=== PATIENT | female | born 1965 | race Caucasian/White ===

== ENCOUNTER → 2017-05-21 08:55 | Outpatient (CLI) | payer OTHER, SELFPAY ==
[2017-05-21 10:12] LABS: AST(SGOT) 17 U/L (15-37); Alanine Aminotransfer ALT/SGPT 30 U/L (13-56); Albumin, Serum 3.5 g/dL (3.2-5.0); Alkaline Phosphatase 74 U/L (45-117); Bilirubin, Direct 0.11 mg/dL (0.00-0.30); Cholesterol 102 mg/dL (200); Globulin 3.7 g/dL (2.2-4.2); High Density Lipoprotein 56 mg/dL; Protein, Total 7.2 g/dL (6.4-8.2); Triglycerides 61 mg/dL; Very Low Density Lipoprotein 12 mg/dL (5-40)
== END ==
PROVIDERS: Family Provider Family Medicine; PCP Family Medicine; Visit Provider Physician Assistant Medical
DX: R94.39 Abnormal result of other cardiovascular function study (principal); Z79.899 Other long term (current) drug therapy
CPT/HCPCS: 36415; 80061; 80076

== ENCOUNTER → 2018-05-22 10:48 | Outpatient (CLI) | payer OTHER, SELFPAY ==
[2018-04-10 14:28] VITALS: BMI 28.3
[2018-05-22 13:34] LABS: AST(SGOT) 20 U/L (15-37); Alanine Aminotransfer ALT/SGPT 30 U/L (13-56); Albumin, Serum 3.9 g/dL (3.2-5.0); Alkaline Phosphatase 65 U/L (45-117); Bilirubin, Direct 0.17 mg/dL (0.00-0.30); Cholesterol 125 mg/dL (200); Globulin 3.8 g/dL (2.2-4.2); High Density Lipoprotein 69 mg/dL; Protein, Total 7.7 g/dL (6.4-8.2); Triglycerides 118 mg/dL; Very Low Density Lipoprotein 24 mg/dL (5-40)
== END ==
PROVIDERS: Family Provider Family Medicine; PCP Family Medicine; Referring Provider Physician Assistant Medical; Visit Provider Physician Assistant Medical
DX: R94.39 Abnormal result of other cardiovascular function study (principal)
CPT/HCPCS: 36415; 80061; 80076

== ENCOUNTER → 2018-06-04 13:07 | Outpatient (CLI) | payer OTHER, SELFPAY ==
[2018-04-10 14:28] VITALS: BMI 28.3
--- NOTE | 2018-06-04 13:12 | STE_ITS ---
Reason For Study: CHEST PAIN Stress Results Protocol: Stress Echocardiogram Maximum Predicted HR: 168 bpm Target HR: 143 bpm % Maximum Predicted HR: 113 % DurationHeart Rate Stage (mm:ss) (bpm) BP Comment BASELINE 73 126/78 GROVER PROTOCOL- STAGE 1 3:00 122 160/80 GROVER PROTOCOL- STAGE 2 3:00 142 154/76 GROVER PROTOCOL- STAGE 3 3:00 169 162/74 GROVER PROTOCOL- STAGE 4 2:00 190 / DYSPNEA Stress Duration: 11:00 mm:ss Maximum Stress HR: 190 bpm METS: 13 Baseline Echocardiogram Findings Stress Echo Wall motion Data Resting WM Intermediate WM Stress WM Resting Wall Motion Wall Motion Stress All segments Normal. All segments Hyperkinetic. Ejection Fraction 60 %. Ejection Fraction 75 %. Stress Results Heart rate response: appropriate Blood pressure response: normal resting BP - appropriate response Arrhythmias: rare PVC during exercise / recovery Functional capacity: good Stopped secondary to : dyspnea. EKG Data Baseline ECG: NSR. Exercise ECG: approximately 1-[address] segment depression in leads II, III, aVF, and V3-V6 with resolution towards baseline beginning < 1 minute in recovery with subsequent nonspecific T wave abnormality. Symptoms with Stress No c/o chest discomfort during exercise / recovery. Interpretation Summary NEGATIVE (ADEQUATE) STRESS ECHOCARDIOGRAM ABNORMAL (ADEQUATE) ECG ETT Ordering Physician: Jasmyn Alvarado Referring Physician: Jasmyn Alvarado Performed By: Maribel Wang, ANGELA, RVT
== END ==
PROVIDERS: Family Provider Family Medicine; PCP Family Medicine; Referring Provider Physician Assistant Medical; Visit Provider Physician Assistant Medical
DX: R07.9 Chest pain, unspecified (principal); R94.39 Abnormal result of other cardiovascular function study
CPT/HCPCS: 93017; 93350

== ENCOUNTER → 2018-06-20 15:30 | Outpatient (CLI) | payer OTHER, SELFPAY ==
[2018-04-10 14:28] VITALS: BMI 28.3
--- NOTE | 2018-06-20 15:31 | BI_ITS ---
MAMMOGRAPHY - BILATERAL SCREENING 3-D TOMOSYNTHESIS REASON FOR EXAM: Female, 53 years old. Bilateral Screening 3-D tomosynthesis PERTINENT HISTORY: No significant family history. TECHNIQUE: 2-D mammograms and 3-D Tomosynthesis of the breast (s) were performed. CAD was performed. COMPARISON: 02/02/2017 FINDINGS: The breast composition is composed of scattered fibroglandular density. Scattered benign calcifications are seen. No dense spiculated masses or suspicious microcalcifications are identified. No architectural distortion is identified. There is no skin thickening or retraction. Stable lymph node in the upper outer quadrant of the right breast. There has been no significant change since the prior study. BI/SCREENING MAMM (CAD), BILAT IMPRESSION: No mammographic signs of malignancy. Routine yearly mammograms recommended. ASSESSMENT CATEGORY: BIRADS Category 2: Benign. A letter regarding these results will be sent to the patient by the facility within 30 days. FOLLOW UP RECOMMENDATION: Yearly follow up mammogram recommended. (A) Approximately 10% of breast cancers are not detected by mammography. A normal mammogram should not delay biopsy of a clinically suspicious abnormality. Electronically Signed: Pollo Gore MD at 7:54 EDT , Service support ,
== END ==
PROVIDERS: Family Provider Family Medicine; PCP Family Medicine; Referring Provider Obstetrics & Gynecology; Visit Provider Obstetrics & Gynecology
DX: Z12.31 Encounter for screening mammogram for malignant neoplasm of breast (principal)
CPT/HCPCS: 77063; 77067

== ENCOUNTER 2018-07-23 09:07 | Day surgery (SDC) | payer OTHER, SELFPAY ==
[2018-04-10 14:28] VITALS: BMI 28.3
[2018-07-17 11:04] VITALS: BMI 28.3
--- NOTE | 2018-07-17 12:15 | RAD_ITS ---
STUDY: X-RAY CHEST REASON FOR EXAM: Female, 53 years old. Preop heart catheter. TECHNIQUE: PA and lateral views of the chest. COMPARISON: None. FINDINGS: The lungs are clear and expanded. There is no demonstrated pleural abnormality. Normal size heart. Normal mediastinum and jomar. Normal visualized pulmonary arteries. Normal visualized aortic arch and descending thoracic aorta. Normal visualized thoracic spine. Normal visualized ribs, clavicles, and shoulders. There is no demonstrated abnormality of the visualized soft tissue structures of the upper abdomen. RAD/Chest PA and Lateral IMPRESSION: No acute cardiopulmonary disease. Electronically Signed: Ariel Hobson DO at 23:35 EDT Tel [phone], Service support ,
[2018-07-17 13:04] LABS: Mean Corp Hgb Conc 34.1 g/gl (32-36); Mean Corpuscular Hgb 29.9 pg (27.0-32.0); Mean Corpuscular Volume 87.8 fL (81-99); Mean Platelet Vol. 9.2 fl (6.2-12.0); Platelet Count 402 K/mm3 (150-450); RBC Distribution Width CV 12.2 % (11.6-14.6); RBC Distribution Width SD 38.9 fl (35.1-43.9); Red Blood Count 5.01 M/mm3 (4.2-5.4); White Blood Count 7.5 K/mm3 (4.4-11.0)
[2018-07-17 13:08] LABS: Scan Indicated on CBC? Y/N NO
[2018-07-17 13:15] LABS: Prothrombin Time (Protime)PT. 12.9 SECONDS (11.7-14.9)
[2018-07-17 13:16] LABS: Partial Thromboplast Time 31.5 Seconds (24.1-36.2)
[2018-07-17 13:26] LABS: Anion Gap 3 (5-15); BUN 11 mg/dL (7-18); BUN/Creat Ratio 15.4 RATIO (10-20); Calcium,Total 8.7 mg/dL (8.5-10.1); Chloride 105 mmol/L (98-107); Creatinine, Serum 0.72 mg/dL (0.55-1.02); EST Glomerular Filtration Rate 91 mL/min (>60); Est Glom Filt Rate - Afr Amer 110 mL/min (>60); Glucose 86 mg/dL (74-106); Potassium 3.6 mmol/L (3.5-5.1); Sodium Level 139 mmol/L (136-145)
[2018-07-19 10:12] VITALS: BMI 28.3
[2018-07-23 09:47] LABS: Internal QC Validated? YES +Cl - CLEAR BKGD; Pregnancy, Serum, hCG Quali. NEGATIVE Negative
--- NOTE | 2018-07-23 11:40 | CL.D_ITS ---
Patient Name: JIN SMITH Study Date: 07/23/2018 Performing: Julius Engel MD Ht: 66.92 inches 170 cm : 1965 Wt: 180.78 lbs 82 kg Age: 53 Gender: female BSA: 1.94 PROCEDURE(S) PERFORMED [id number] CLINICAL PROFILE AND INDICATIONS Indications: Suspected CAD Heart Failure: None Stress/Imaging Date: 05/30/2018 Angina Classification Anginal Classification w/in 2 Weeks: CCS II CAD Presentations: Other: Chest pain CONCLUSIONS Elevated Left Ventricular End Diastolic Pressure Normal LV size, wall motion,and systolic function LVEF: by LV gram 65 % Normal coronary arteries RECOMMENDATIONS Medical therapy DESCRIPTION OF PROCEDURE The patient arrived to the procedure lab. The risks and benefits of the procedure as well as a full d escription of our services here and current unavailability of surgical backup were fully explained to the patient and/or their significant other prior to the catheterization. The Timeout was completed, verifying the correct patient and procedure. The patient's procedural site was prepped and draped in the usual fashion. Local anesthetic was given subcutaneously to right radial region with Lidocaine 2% . Using a modified Seldinger technique, arterial access was obtained via the right radial artery, a 6 Fr sheath was inserted. Right Coronary Artery selective angiography was then performed in multiple v iews using a 5 Fr. 4.0 [place] catheter. Left Coronary Artery selective angiography was performed in mu ltiple views using a 5 Fr. 4.0 [place] catheter. Left Ventriculography was performed in RADFORD projection using a 5 Fr. Pig[place] catheter. LV to AO pullback pressures were then recorded.The arterial sheath was pulled and a TR Band was applied for hemostasis 12cc air inserted CORONARY ANGIOGRAPHY DOMINANCE: Right Dominant LEFT HEART ASSESSMENT Left Ventricular Ejection Fraction: by LV Gram 65 % Normal LV wall motion Elevated Left Ventricular End Diastolic Pressure LVEDP: 18 mmHg LEFT MAIN: Angiographically normal LEFT ANTERIOR DESCENDING ARTERY: Angiographically normal CIRCUMFLEX ARTERY: Angiographically normal RIGHT CORONARY ARTERY: Angiographically normal VALVE FINDINGS: Normal Aortic Valve function Normal Mitral Valve function AORTIC ROOT: Angiographically normal COMPLICATIONS No Complications PROCEDURE MEDICATIONS Versed 1 mg IV Fentanyl 50 mcg IV Versed 1 mg IV Fentanyl 50 mcg IV Oxygen: 2 L/min via nasal cannula Heparin diluted in 23cc Heparinized saline. Patient given 10cc IA of this solution. 07/23/2018 10:59: 34 Verapamil 2.5mg, Ntg 100mcgs, 2000 units of Heparin diluted in 23cc Heparinized saline. Patient give n 10cc IA of this solution. 07/23/2018 10:59:34 SUMMARY OF HEMODYNAMIC DATA Time AIR REST ECG 09:27:37 AO 126/72 (96) SA 11:01:33 LV 141/3, 22 11:12:10 LV 136/0, 18 11:12:16 LV 132/3, 20 11:13:37 LV 135/3, 21 11:13:44 LVp 136/0, 21 11:13:48 AOp 136/69 (99) 11:13:53 Signed By Julius Engel MD On 07/23/2018 11:39:10 Julius Engel MD
== END 2018-07-23 14:48 | disposition home or self-care (01) ==
LOC: CLSP 09:08
PROVIDERS: Family Provider Family Medicine; PCP Family Medicine; Referring Provider Internal Medicine Cardiovascular Disease; Visit Provider Internal Medicine Cardiovascular Disease
DX: R07.9 Chest pain, unspecified (principal); R94.39 Abnormal result of other cardiovascular function study; Z79.82 Long term (current) use of aspirin
CPT/HCPCS: 36415; 71046; 80048; 84703; 85027; 85610; 85730; 93458; 99152; 99153; J7040; Q9967; C1769; C1894

== ENCOUNTER → 2019-10-17 13:18 | Outpatient (CLI) | payer OTHER, SELFPAY ==
[2019-09-11 15:29] VITALS: BMI 29.2
--- NOTE | 2019-10-17 13:23 | BI_ITS ---
MAMMOGRAPHY - BILATERAL SCREENING 3-D TOMOSYNTHESIS REASON FOR EXAM: Female, 54 years old. Annual screening mammogram. PERTINENT HISTORY: No significant family history. TECHNIQUE: 2-D mammograms and 3-D Tomosynthesis of the breast (s) were performed. CAD was performed. COMPARISON: 06/20/2018, 02/02/2017 FINDINGS: The breast composition is Scattered benign calcifications are seen. No dense spiculated masses or suspicious microcalcifications are identified. No architectural distortion is identified. There is no skin thickening or retraction. Stable lymph nodes. There has been no significant change since the prior study. BI/SCREEN MAMM (CAD) W/IRLANDA BILAT IMPRESSION: No mammographic signs of malignancy. Routine yearly mammograms recommended. ASSESSMENT CATEGORY: BIRADS Category 2: Benign. A letter regarding these results will be sent to the patient by the facility within 30 days. FOLLOW UP RECOMMENDATION: Yearly follow up mammogram recommended. (A) Approximately 10% of breast cancers are not detected by mammography. A normal mammogram should not delay biopsy of a clinically suspicious abnormality. Electronically Signed: Dane Abreu MD at 15:53 EDT , Service support ,
--- NOTE | 2019-10-17 14:17 | US_ITS ---
STUDY: SUPERFICIAL ULTRASOUND - BACK REASON FOR EXAM: Female, 54 years old. palpable mass - left back TECHNIQUE: A superficial ultrasound was performed with real-time and static hernandez-scale imaging. COMPARISON: None. FINDINGS: Multiple ultrasound images of the left lateral back were obtained in the region of clinical interest. An ovoid structure is identified measuring 26 x 17 x 10 mm. This has an overall similar appearance to adjacent skeletal muscle, although the finding in question is slightly more hyperechoic. A region of partially fatty muscular fascicles could have this appearance. True underlying mass lesion is not entirely excluded. Consider MRI correlation. US/Ext Non Vasc Limited/Soft Tiss IMPRESSION: In the region of clinical interest, a slightly hyperechoic structure is identified that has an otherwise similar appearance to adjacent skeletal muscle. A region of partially fatty muscular fascicles could have this appearance. True underlying mass lesion is not entirely excluded. Consider MRI correlation. Electronically Signed: Rodney Whittaker MD at 19:44 EDT Tel , Service support ,
== END ==
PROVIDERS: PCP Family Medicine; Referring Provider Student in an Organized Health Care Education/Training Program; Visit Provider Student in an Organized Health Care Education/Training Program
DX: Z12.31 Encounter for screening mammogram for malignant neoplasm of breast (principal); R22.2 Localized swelling, mass and lump, trunk
CPT/HCPCS: 76882; 77063; 77067

== ENCOUNTER → 2019-10-31 13:13 | Outpatient (CLI) | payer OTHER, SELFPAY ==
[2019-09-11 15:29] VITALS: BMI 29.2
--- NOTE | 2019-10-31 13:19 | MRI_ITS ---
STUDY: MR CHEST WITH T WITHOUT CONTRAST REASON FOR EXAM: Mass at the lateral aspect of the left back between the skin markers, no specific injury. TECHNIQUE: Standardized fat and water weighted pulse sequences were obtained in all 3 orthogonal planes, pre-and post contrast administration. Dotarem 17ml iv was administered for the contrast portion of the examination. COMPARISON: Ultrasound 10/17/2019. FINDINGS: There is a superficial nonencapsulated lipoma at the left lateral chest wall between the skin markers (T2 sagittal images 5-8; T1 axial images 12-23). There is no contrast enhancing lesion in the subcutis adipose space. Normal visualized musculature of the left chest wall. MRI/Chest W/WO Contrast IMPRESSION: Superficial nonencapsulated lipoma corresponding to the skin markers. Electronically Signed: Branden Khan MD at 15:30 EDT Tel , Service support ,
== END ==
PROVIDERS: PCP Family Medicine; Referring Provider Family Medicine; Visit Provider Family Medicine
DX: R22.2 Localized swelling, mass and lump, trunk (principal)
CPT/HCPCS: 71552; A9575

== ENCOUNTER → 2019-12-30 09:44 | Outpatient (CLI) | payer OTHER, SELFPAY ==
[2019-09-11 15:29] VITALS: BMI 29.2
[2019-12-30 10:35] LABS: AST(SGOT) 19 U/L (15-37); Alanine Aminotransfer ALT/SGPT 30 U/L (13-56); Albumin, Serum 3.8 g/dL (3.2-5.0); Alkaline Phosphatase 87 U/L (45-117); Bilirubin, Direct 0.11 mg/dL (0.00-0.30); Cholesterol 194 mg/dL (200); Globulin 4.1 g/dL (2.2-4.2); High Density Lipoprotein 65 mg/dL; Protein, Total 7.9 g/dL (6.4-8.2); Triglycerides 132 mg/dL; Very Low Density Lipoprotein 26 mg/dL (5-40)
== END ==
PROVIDERS: PCP Family Medicine; Referring Provider Nurse Practitioner Family; Visit Provider Nurse Practitioner Family
DX: R07.9 Chest pain, unspecified (principal)
CPT/HCPCS: 36415; 80061; 80076

== ENCOUNTER 2020-01-15 16:32 | Observation (INO) | payer OTHER, SELFPAY ==
[2019-09-11 15:29] VITALS: BMI 29.2
--- NOTE | 2020-01-08 08:43 | EKG12_ITS ---
Test Reason : PRE OP Blood Pressure : / mmHG Vent. Rate : 075 BPM Atrial Rate : 075 BPM P-R Int : 162 ms QRS Dur : 072 ms QT Int : 362 ms P-R-T Axes : 039 -05 032 degrees QTc Int : 404 ms Normal sinus rhythm Normal ECG Confirmed by YARIEL RIVERA, RUBIN ([id number]), mapping editor JOVANI SMITH ([id number]) on 01/13/2020 9:56:14 AM Referred By: SARAH Confirmed By:SHIN SALDIVAR MD
--- NOTE | 2020-01-14 18:05 | HP.PCM_ITS ---
History and Physical Date of Admission: 01/15/20 Date: 01/14/2020 Name: VANNESA SMITH Age: 54 Date of : 1965 Surgical History and Physical Date: 01/14/2020 Name: VANNESA SMITH Age: 54 Date of : 1965 Vannesa Smith, a 54 year old female 2 0 1 0 2, presents for planned Robotic Assisted Total Laparoscopic Hysterectomy, Bilateral Salpingectomy, Possible A+P Repair uterosacral ligament suspension for abnormal uterine bleeding and pelvic organ prolapse. She has a large fibroid uterus. Endometrial biopsy was benign. MEDICATIONS HISTORY: History of chest pain of unknown origin. She had cardiac catheterization with Dr. Engel which was negative for blockage. Chest pain occurs about every 6 months. Medications: 1. multivitamin capsule, 1 tab po daily 2. Hylatopic topical foam, Apply to face daily ALLERGIES: Polymyxin eye gtts, Redness, irritation, Etodolac, Stomach ache, Polymyxin B, Eye and redness Infections - Chicken pox, HPV and mono Illnesses - lower back pain from fall age 20 (fell off bunkbed and hit a dresser), Rosacea and Heart blockage Accidents - fall, injured back and broken L radius Hospitalizations - Childbirthnbirth by [facility]; Review of Systems: GENERAL - Denies fever, or chills SKIN - Denies skin changes EYES - wears eye glasses EARS - Denies difficulty hearing NOSE - Denies nasal congestion or bleeding MOUTH - Denies sore throat or difficulty swallowing NECK - Denies pain or swelling RESPIRATORY - Denies shortness of breath or wheezing CARDIOVASCULAR - Denies palpitations or chest pain GASTROINTESTINAL - Denies nausea, vomiting, diarrhea, constipation GENITOURINARY - Denies dysuria, frequency of urination, incontinence of urine MUSCULOSKELETAL - Denies joint or muscle pain NEUROLOGICAL - Denies localized numbness or weakness PSYCHIATRIC - Denies depression or anxiety ENDOCRINE - Denies heat or cold intolerance, weight loss or gain HEMATO-IMMUNOLOGIC - Denies excesive bleeding with cuts SOCIAL HISTORY: Alcohol Use - drinks occasionally Smoking - denies smoking Illicit Drug Use - None FAMILY HISTORY: Maternal history of DM I. Mother: osteoporosis and Hypertension. Father: Prostate Cancer. Maternal Grandmother: low bp, DM II and Heart Disease. Paternal Grandmother: Heart Disease. Paternal Grandfather: Heart Disease. MENSTRUAL HISTORY: LMP Known?- DefiniteAmount/Duration - 4-5 days, Regularity - Regular, Frequency - monthly days, Prior Menses - 11/16/2011, LMP - 12/26/19 PAST PREGNANCIES: Total Pregnancies - 3; Full Term Pregnancies - 2; Premature - 0; Abortions, Induced - 0; Abortions, Spontaneous - 1; Ectopics - 0; Multiple Births - 0; Living Children - 2 SURGICAL HISTORY: 1. CRYOSURGERY 1988 ; - 2. WISDOM TEETH EXTRACTED ; - 3. Heart Cath 06/2018 ; Dr. Engel - Chest pain. Negative heart cath. No etiology found for pain. PHYSICAL EXAM BP- 132/72 Sitting, Right arm, regular cuff Temp- 97.9 Taken Orally Weight- 185.38729 lbs Height- 66.25 inch BMI:29.70 CONSTITUTIONAL - NAD, well nourished, and well developed SKIN - No rash, lesions, or ulcers HEENT - Normocephalic, PERRLA, EOMI NECK - No nodes, no nuchal rigidity and thyroid normal size and texture LYMPH NODES - Palpation of lymph nodes in neck and groins within normal limits LUNGS - CTA x2 without wheezes, crackles or rales CARDIAC - Regular rate and rhythm without rubs, murmurs, or gallops BREAST - No dominant masses, no tenderness, no axillary adenopathy, no nipple discharge, no skin changes ABDOMEN - Without hepatosplenomegaly, distention, masses, rebound, or guarding; normal bowel sounds; no hernias EXTREMITIES - No edema or calf tenderness NEUROLOGICAL - Cranial nerves II-XII grossly intact PSYCHIATRIC - A and O to time, place, person, mood and affect External Genitial Vagina - non-tender without lesions Urethra/Urethral Meatus - non-tender Bladder - non-tender Vagina - vaginal castro are pink and moist without loss of rugae and no evidence of atropy Cervix - without cervical motion tenderness and has normal size and features without evident lesions Uterus - enlarged uterus Adnexa - clear without massess or tenderness ASSESSMENT/PLAN: 1. Leiomyoma Of Uterus, Unspecified Enlarged fibroid uterus causing heavy menstrual bleeding and pelvic pressure, bloating, urinary symptoms. Discussed management options including: surgical, medical, or IUD. Patient opts for surgical management Planned for RA-TLH bilateral salpingectom with cystoscopy, counseled on potential need for open hysterectomy or mini-laparotomy due to size of uterus. Discussed preservation of ovaries. Discussed risk of reoperation in future with leaving ovaries at this time. Patient would like to conserve ovaries, but is amenable to removal if abnormal in appearance at time of surgery. Cardiac clearance received. R/B/A discussed. Risks inculde, but are not limited to: risk of bleeding to the point of transfusion, infection, injury to surrounding tissue including bowel/bladder requiring prolonged mesa use, VTE, ICU admission. Patient agreed and understands. Consents signed 2. Irregular Menstruation, Unspecified Heavy menses lasting 10-14 days per month, pt also having post coital bleeding Enlarged 13 cm uterus with 8 cm fibroid EMB negative for hyperplasia or malignancy 3. Uterovaginal Prolapse, Unspecified Possible anterior and posterior repair, uterosacral ligament suspensio n based on exam in OR. Reports some pelvic pressure symptoms and bulging that is bothersome. R/B/A as above.
[2020-01-15] VITALS (10 sets, daily range): BP systolic 108–133; BP diastolic 52–75; PULSE 68–87; RESP 14–16; TEMP 36.3–37.1; O2SAT 94–100; BMI 29.0
[2020-01-15 11:24] LABS: Internal QC Validated? YES +Cl - CLEAR BKGD; Pregnancy, Urine Negative Negative
[2020-01-15 11:26] LABS: Hematocrit 43.4 % (37-47); Hemoglobin 14.7 g/dL (12.0-15.0); Mean Corp Hgb Conc 33.9 g/dL (32-36); Mean Corpuscular Hgb 30.6 pg (27.0-32.0); Mean Corpuscular Volume 90.4 fL (81-99); Mean Platelet Vol. 8.7 fl (6.2-12.0); Platelet Count 379 K/mm3 (150-450); RBC Distribution Width SD 39.4 fl (35.1-43.9)
[2020-01-15] MEDS: Lactated Ringers 1,000 ML 100 ML IV ×3 (11:31→17:48)
--- NOTE | 2020-01-15 12:15 | HYST_PTH ---
PATIENT: JIN SMITH LOC: [facility] U#:[id number] AGE/SX: 54/F ROOM: [facility]320 RE01/15/[address]: Dr. Magda Frost DO : 1965 BED: 1 DIS: 01/16/2020 SPEC #: [id number] RECD: 01/16/20 07:05 STATUS: NICOLE REDawn #: [id number] MARVA: 01/15/20 12:[address]: Magda Frost DEPT: SURGICAL PATHOLOGY RECD BY: Krystian Hancock ENTERED: 01/16/20 08:38 SP TYPE: HYSTERECT OTHR DR: Dr. Michelle Franklin MD Tissues: Uterus, NOS Procedures: Surgery Specimen Level V HEADER OPERATION: Lap robotic hysterectomy, cystoscopy, bilateral salpingectomy PRE-OP DIAGNOSIS: Leiomyoma uterus, irregular menstruation, uterovaginal prolapse TISSUE SUBMITTED: Uterus, cervix, bilateral fallopian tubes MICROSCOPIC DIAGNOSIS Uterus, hysterectomy: Cervix - squamous metaplasia, moderate chronic inflammation and nabothian cysts. Endometrium - transitional endometrium. Myometrium - leiomyoma. Right and left fallopian tubes - benign paratubal cysts. AM:cleve 01/19/20 MICROSCOPIC DESCRIPTION Slides are reviewed. GROSS DESCRIPTION Received in fixative is one container labeled with the patient's name and designated uterus. The specimen consists of a morcelated uterus received in greater than 25 fragments ranging in size from <0.1 to 14 cm and in aggregate weighing 457 gm. Among the fragments are two fallopian tubes with average lengths of 4 cm and average diameters of 1 cm. Normal fimbriated ends are identified. The fallopian tubes are not marked as to left or right. A distinct endocervical cavity is not identified. A distinct endometrial cavity is also not identified. The largest portion of the specimen consists of a rubbery, sanchez-white mass measuring 8 cm in diameter. Sections of this nodular mass reveal whorled appearances without areas of cyst formation or necrosis. Exercise Rider sections are submitted in six cassettes as follows: 1 - cervix, 2 - one fallopian tube, 3 - the other fallopian tubes, posterior cervix, 4 & 5 - presumed endometrium/myometrial, 6 - nodular mass. / AM:cleve 01/16/20 TC:1 CPT: 99515
[2020-01-15] MEDS: Cefazolin 2 GM in 0.9% Normal Saline 100 ML IV (12:51)
[2020-01-15] MEDS: Lidocaine 1% /Epi 1:100 (20ml) 20 ML Vial (13:17)
--- NOTE | 2020-01-15 16:37 | OP.PCM_ITS ---
Report of Operation Date of Procedure: 01/15/20 Pre-Operative Diagnosis: Abnormal uterine bleeding, fibroid uterus. Anterior vaginal prolapse. Post-Operative Diagnosis: Abnormal uterine bleeding, fibroid uterus. Anterior vaginal prolapse. Surgery/Procedure Performed:: Robotic assisted total laparoscopic hysterectomy, anterior repair, cystoscopy. Description of Surgical Findings:: Normal-appearing external genitalia. Grade 3 cystocele. No rectocele. No apical prolapse. Normal-appearing bilateral ovaries, tubes. Enlarged fibroid uterus. Specimen's removed: Uterus, cervix, fallopian tubes Estimated Blood Loss (mL): 250cc Fluids Replaced: 1700cc Description of Procedure: Patient taken to the operating room and placed under general anesthesia. Patient placed in dorsal lithotomy position and prepped and draped in the usual sterile fashion. Linda catheter placed. Grade 3 anterior prolapse was noted. Weighted speculum placed in the posterior vagina and anterior portion of the cervix grasped with a single-tooth tenaculum. Cervix sequentially dilated and sounded to 11 cm. Uterine manipulator placed after 2 [id number] sutures placed at 3 and 9:00 positions. Gloves were changed and attention was then turned to the anterior abdominal wall. Varies needle was utilized to insufflate the abdomen through the umbilicus. Supraumbilical incision made and trocar placed. Laparoscopic camera was utilized to visualize the entire abdominal wall. Right and left trocar's were placed under direct visualization. Robot was docked. Uterus noted to be enlarged and boggy, difficult to manipulate. Attention to the left side of the uterus was made. left round ligament was identified coagulated and cut anterior leaf of the broad ligament dissected down towards the vesicouterine peritoneum and bladder flap was created. Because the uterus was large and difficult to meet manipulator was decided to leave tubes initially and come back. Ureters identified. Left tube was coagulated and cut along the side of the uterus, left utero-ovarian ligament was coagulated and cut several locations. Dissection was carried down the left side of the uterus towards the left uterine arteries. Enlarged left uterine arteries were noted. Uterus was tilted in the opposite direction and right round ligament was identified coagulated and cut. Vesicouterine peritoneum identified and bladder flap was created on the right side carrying towards the midline. Right tube was coagulated and cut along the side of the right uterus. Right utero-ovarian ligament was coagulated and cut in a similar fashion. Dissection was carried down the right side of the uterus towards the uterine arteries. Further dissection of the bladder away from the anterior cervix was completed using blunt dissection as well as sharp. An area at the middle of the cervix was noted to be adhesed this was dissected off carefully away from the uterus and cervix, allowing the bladder flap to fall away from the anterior cervix. Right uterine artery was identified coagulated in several locations and incised. Left uterine artery was coagulated in several locations and incised in a similar fashion. Uterus was anteverted and colpotomy was started posteriorly this was then carried towards the left in a clockwise fashion as lithotomy incision reached the region of the uterine arteries there were noted to be more arteries which were coagulated with bipolar cautery and then incised. Colpotomy was then extended around the right side of the uterus using bipolar cautery to coagulate the remaining uterine arteries on the right side. Colpotomy was extended anteriorly and completed. Uterus was attempted to be removed however the manipulator came out with traction. At that time I scrubbed and the uterus was incised through the vagina, attempting to bivalve. Portions of the uterus were removed slowly coring the center. This took extensive dissection of the uterus due to the fibroid the fundus. Uterus was then removed through the vagina with traction. Fallopian tubes were then removed laparoscopically. Right fallopian tube was grasped coagulated cut and removed followed by the left in a similar fashion. Vaginal cuff was then closed robotically with a V-Loc suture starting on the right extending towards the left and following 2 stitches towards midline. Pelvis with suction irrigated. Vaginal cuff was hemostatic along with the right and left ovarian regions. Robot was undocked. At this time attention was turned below and anterior repair was completed, for grade 3 anterior prolapse. Anterior vaginal wall was grasped with 2 Allis clamps injection was completed for hydrodissection Vertical incision in the vagina was made with sc alpel Allises were used to grasp bilateral sides of the vaginal incision. Metzenbaum scissors were utilized for dissection of the defect away from the vaginal epithelium on both sides. Ray-Doris was also used for blunt dissection. Stitches were placed to repair the defect. Vaginal epithelium was trimmed and closed with a running locking stitch. Hemostatic. Abdominal incisions were then closed with stitches and glue after gloves were changed. Cystoscopy was completed with no noted bladder defects and bilateral ureteral jets. At the end of the procedure all needle, lap, sponge counts were correct x3. 150cc urine output.
--- NOTE | 2020-01-15 16:50 | DCINST_ITS ---
Discharge Activity: Return to Normal Activity, May not drive while taking narcotic pain medications., May Shower May resume sexual activity in: 6 weeks, 8 weeks Weight Bearing Status: Weight bearing as tolerated Call your doctor if your incision/area has: Continuous Slow Oozing, Sudden Increased Bleeding, Increased Pain/ Swelling, Increased Redness Call your doctor if you observe: Fever of 101 or Higher, Inability to urinate, Inability to have a bowel movement, Using more than one pad per hour, Uncontrolled pain Cleanse incision/area with: Soap & Water Allergies/Adverse Reactions: Allergies etodolac Adverse Reaction (Verified 01/15/20 10:57) stomach pain polymyxin B [From Polytrim] Adverse Reaction (Verified 01/15/20 10:57) red, itchy,tearing trimethoprim [From Polytrim] Adverse Reaction (Verified 01/15/20 10:57) red, itchy,tearing Medications to take at Discharge metronidazole 0.75 % topical gel 1 applic TOPICAL ONCE PRN 03/02/17 multivitamin 1 tab PO DAILY 04/10/18 ascorbate calcium (vitamin C) 500 mg tablet 500 mg PO DAILY 07/17/18 cetirizine 10 mg capsule 10 mg PO DAILY PRN 07/17/18 emollient combination no.53 1 ea TOPICAL BID ml 07/17/18 Primary Care Physician: Michelle Franklin MD [Primary Care Provider] - Test Results: Test results from this visit will be discussed in further detail at your follow- up appointment, if applicable. Please Follow Up With: Magda Frost DO - 2 weeks Proposed Discharge Date: 01/16/20
[2020-01-15] MEDS: Ibuprofen 600 MG Tablet PO (21:18)
[2020-01-16 02:18] VITALS: BP 126/61; PULSE 85; RESP 16; TEMP 36.7; O2SAT 96
[2020-01-16] MEDS: HYDROcodone Bitartrate/Apap 5/325 Tablet PO (03:32)
[2020-01-16 05:23] VITALS: BP 110/61; PULSE 68; RESP 16; TEMP 36.8; O2SAT 98
[2020-01-16] MEDS: Ibuprofen 600 MG Tablet PO (06:13)
[2020-01-16 07:50] LABS: Hematocrit 35.1 % (37-47); Hemoglobin 11.5 g/dL (12.0-15.0); Mean Corp Hgb Conc 32.8 g/dL (32-36); Mean Corpuscular Hgb 30.1 pg (27.0-32.0); Mean Corpuscular Volume 91.9 fL (81-99); Mean Platelet Vol. 8.7 fl (6.2-12.0); Platelet Count 325 K/mm3 (150-450); RBC Distribution Width CV 12.1 % (11.6-14.6); RBC Distribution Width SD 40.7 fl (35.1-43.9); Red Blood Count 3.82 M/mm3 (4.2-5.4); White Blood Count 21.5 K/mm3 (4.4-11.0)
--- NOTE | 2020-01-16 08:18 | PCM.PN.OB ---
Subjective: POD#1 Feeling well. Ambulating. Tolerating fluids. Ordered breakfast. Abdominal pain controlled, having some referred shoulder pain. Voiding. - Physical Exam Vitals/I&O's: Vital Signs Temp Pulse Resp BP Pulse Ox 98.2 F 68 16 110/61 98 01/16/20 05:23 01/16/20 05:23 01/16/20 05:23 01/16/20 05:23 01/16/20 05:23 Oxygen Delivery Method Room Air Weight: 83.9 kg Body Mass Index (BMI) 29.0 Intake and Output for Last 24 Hours 01/14/20 01/15/20 01/16/20 23:59 23:59 23:59 Intake Total 2110 / 2660 2450 / 2450 Output Total 150 / 375 1225 / 1225 Balance 1960 / 2285 1225 / 1225 General: Alert, Oriented x3, No apparent distress HEENT: Atraumatic, Normocephalic Neck: Supple Lungs: Clear to auscultation Cardiovascular: Regular rate, Regular Rhythm Abdomen: Bowel Sounds Present - hypoactive. Mildly tender. incisions c/d/i Extremities: No clubbing, No edema Psych/Mental Status: Normal Affect Microbiology Past 72 Hours 01/14/20 16:20 Interface Orders SARS-CoV-2 Antigen (Rapid) - Final Laboratory Results 01/15/20 11:05: Urine Test Negative 01/15/20 11:20: WBC 10.0, RBC 4.80, Hgb 14.7, Hct 43.4, MCV 90.4, MCH 30.6, MCHC 33.9, RDW Std Deviation 39.4, RDW Coeff of Lala 12.0, Plt Count 379, MPV 8.7 01/16/20 07:35: WBC 21.5 H, RBC 3.82 L, Hgb 11.5 L, Hct 35.1 L, MCV 91.9, MCH 30.1, MCHC 32.8, RDW Std Deviation 40.7, RDW Coeff of Lala 12.1, Plt Count 325, MPV 8.7 Current Medications Hydrocodone Bitart/Acetaminophen (Hydrocodone Bitartrate/Apap 5/325 Tablet) 2 tablet PO Q4H PRN PRN PRN Reason: Pain Score 6-10 Last Admin: 01/16/20 03:32 Dose: 2 tablet Documented by: Enoxaparin Sodium (Enoxaparin 40 Mg/0.4 Ml Syringe) 40 mg SC DAILY@0800 [facility] Lactated Ringer's () 1,000 mls @ 100 mls/hr IV .Q10H [facility] Last Infusion: 01/16/20 04:06 Dose: Infused Documented by: Ibuprofen (Ibuprofen 600 Mg Tablet) 600 mg PO Q6 [facility] Last Admin: 01/16/20 06:13 Dose: 600 mg Documented by: Influenza Virus Vaccine Quadrival (Influenza Vaccine (6mos+)/Pf 0.5 Ml Syringe) 0.5 ml IM .ONCE ONE Stop: 01/16/20 10:01 Ondansetron HCl (Ondansetron 4 Mg/2 Ml Vial) 4 mg IV Q4H PRN PRN PRN Reason: NAUSEA Simethicone (Simethicone 80 Mg Tablet) 80 mg PO PCHS PRN PRN Reason: Gas Last Admin: 01/16/20 02:37 Dose: 80 mg Documented by: Sodium Chloride (0.9% Saline Lock 10 Ml Syringe) 10 - 40 ml IV UD PRN PRN Reason: SALINE FLUSH Medical Necessity - Tobacco Use Smoking Status: Never smoker Assessment/Plan 54 yo POD#1 s/p robotic assisted total laparoscopic hysterectomy, bilateral salpingectomy, anterior repair, and cystoscopy for abnormal uterine bleeding, anterior vaginal prolapse. Complicated by acute blood loss anemia secondary to surgery. Stable. 1. Post operative -Acute blood loss anemia secondary to surgery. No need for iron at this time. -Tolerating fluids, breakfast pending. No nausea. -Pain controlled, referred shoulder pain improving -Voiding spontaneously -Ambulating 2. History of cardiac catheterization for atypical chest pain. Negative. -Patient not on medications, no issues currently Diet: Regular IVFs: HLIV DVT PPx: SCD, ambulate, lovenox qd Dispo: home today
[2020-01-16] MEDS: Enoxaparin 40 MG/0.4 ML Syringe SC (08:28)
[2020-01-16 10:04] VITALS: BP 105/61; PULSE 70; RESP 18; TEMP 36.9; O2SAT 98
== END 2020-01-16 11:00 | disposition home or self-care (01) ==
LOC: SDC 16:39 → MS3 16:39
PROVIDERS: Anesthesiology; Admitting Provider Student in an Organized Health Care Education/Training Program; PCP Family Medicine; Referring Provider Student in an Organized Health Care Education/Training Program; Visit Provider Student in an Organized Health Care Education/Training Program
PROC: 0UT94ZZ Resection of Uterus, Percutaneous Endoscopic Approach (ICD-10-PCS; CPT 57240; principal; 2020-01-15 11:55)
PROC: (CPT 57260; 2020-01-15 11:55)
DX: N81.4 Uterovaginal prolapse, unspecified (principal); D25.1 Intramural leiomyoma of uterus; Z20.828 Contact with and (suspected) exposure to other viral communicable diseases; N92.1 Excessive and frequent menstruation with irregular cycle; N88.8 Other specified noninflammatory disorders of cervix uteri; N83.8 Other noninflammatory disorders of ovary, fallopian tube and broad ligament; Z79.899 Other long term (current) drug therapy; Z23 Encounter for immunization; I49.9 Cardiac arrhythmia, unspecified
CPT/HCPCS: 00940; 57240; 58554; S2900; 36415; 81025; 85027; 87426; 88307; 93005; 96360; 96361; 96372; 99218; 99251; C9803; J7120; 90686; G0378; G0379; G0463; J2405

== ENCOUNTER → 2021-01-13 09:04 | Outpatient (CLI) | payer OTHER, SELFPAY ==
--- NOTE | 2021-01-13 09:13 | BI_ITS ---
MAMMOGRAPHY - BILATERAL SCREENING REASON FOR EXAM: Female, 55 years old. Routine annual screening examination. PERTINENT HISTORY: Non-contributory. TECHNIQUE: Digital bilateral breast [place] (3D mammographic acquisition) in the CC and MLO projections. 2-D mediolateral oblique (MLO) and craniocaudad (CC) views of both breasts were obtained. CAD: Full Field Digital Mammography with Computer Added Detection was performed. COMPARISON: Comparison is made with prior study dated 10/17/2019 and 06/20/2018. FINDINGS: Breast Composition: There are scattered areas of fibroglandular density. There is a 4 mm x 5.4 mm well-defined nodule in the anterior upper medial aspect of the right breast. Correlation with ultrasound is recommended. Stable small benign-appearing bilateral axillary lymph nodes. No other significant abnormalities are identified. BI/SCRN MAMM (CAD)W/IRLANDA BILAT IMPRESSION: 4 mm x 5.4 mm well-defined nodule in the anterior upper medial aspect of the right breast. Correlation with ultrasound is recommended. ASSESSMENT CATEGORY: BIRADS Category 0: Incomplete. Need additional imaging evaluation. A letter regarding these results will be sent to the patient by the facility within 30 days. Approximately 10% of breast cancers are not detected by mammography. A normal mammogram should not delay biopsy of a clinically suspicious abnormality. [id number] Electronically Signed: Alec Milton MD at 9:57 EST , Service support ,
== END ==
PROVIDERS: PCP Family Medicine; Referring Provider Student in an Organized Health Care Education/Training Program; Visit Provider Student in an Organized Health Care Education/Training Program
DX: Z12.31 Encounter for screening mammogram for malignant neoplasm of breast (principal)
CPT/HCPCS: 77063; 77067

== ENCOUNTER → 2021-01-14 08:21 | Outpatient (CLI) | payer OTHER, SELFPAY ==
--- NOTE | 2021-01-14 08:40 | US_ITS ---
STUDY: ULTRASOUND BREAST - RIGHT REASON FOR EXAM: Female, 55 years old. Abnormal screening mammogram. TECHNIQUE: Axial and longitudinal images of the RIGHT breast were performed with a high resolution ultrasound transducer. # OF IMAGES: 18 COMPARISON: Comparison is made with prior mammogram dated 01/13/2021. FINDINGS: RIGHT Breast: There is a 4 mm x 4 mm x 1 mm cyst at the 1 o''clock position of the breast at 4 cm from nipple. This also evidence of a 6 mm x 7 mm x 3 mm cyst at the 4 o''clock position of the breast at 3 cm from the nipple. US/Breast Limited Unilateral IMPRESSION: 2 subcentimeter cysts are seen at the 1 o''clock and 4 o''clock position of the breast ASSESSMENT CATEGORY: BIRADS Category 2: Benign. A letter regarding these results will be sent to the patient by the facility within 30 days. Electronically Signed: Alec Milton MD at 11:12 EST , Service support ,
== END ==
PROVIDERS: PCP Family Medicine; Referring Provider Student in an Organized Health Care Education/Training Program; Visit Provider Student in an Organized Health Care Education/Training Program
DX: N60.01 Solitary cyst of right breast (principal)
CPT/HCPCS: 76642

== ENCOUNTER → 2022-04-27 | Outpatient (CLI) | payer OTHER, SELFPAY | END | disposition home or self-care (01) | LOC: LABSPEC 15:07 | PROVIDERS: PCP Family Medicine; Referring Provider Nurse Practitioner Family; Visit Provider Nurse Practitioner Family | DX: J02.9 Acute pharyngitis, unspecified (principal) | CPT/HCPCS: 87070; 87077 ==

== ENCOUNTER → 2022-08-09 | Outpatient (CLI) | payer OTHER, SELFPAY ==
--- NOTE | 2022-08-09 08:52 | BI_ITS ---
MAMMOGRAPHY - BILATERAL SCREENING REASON FOR EXAM: Female, 57 years old. Routine annual screening examination. PERTINENT HISTORY: Non-contributory. TECHNIQUE: Digital bilateral breast [place] (3D mammographic acquisition) in the CC and MLO projections. 2-D mediolateral oblique (MLO) and craniocaudad (CC) views of both breasts were obtained. CAD: Full Field Digital Mammography with Computer Added Detection was performed. COMPARISON: Comparison is made with prior study dated January 13, 2021 and October 17, 2019. FINDINGS: Breast Composition: There are scattered areas of fibroglandular density. There are no dominant masses or suspicious calcifications. Stable 4 mm x 5 mm well-defined nodule in the anterior upper medial aspect of the right breast. Stable benign-appearing bilateral axillary lymph nodes. No other significant abnormalities are identified. There has been no significant change since the prior study. BI/SCRN MAMM (CAD)W/IRLANDA BILAT IMPRESSION: Stable bilateral screening mammogram. Yearly follow-up mammogram recommended. (A) ASSESSMENT CATEGORY: BIRADS Category 2: Benign. A letter regarding these results will be sent to the patient by the facility within 30 days. Approximately 10% of breast cancers are not detected by mammography. A normal mammogram should not delay biopsy of a clinically suspicious abnormality. [id number] Electronically Signed: Alec Milton MD at 11:10 EDT ,
== END | disposition home or self-care (01) ==
LOC: OPBI 08:49
PROVIDERS: PCP Family Medicine; Referring Provider Nurse Practitioner Women's Health; Visit Provider Nurse Practitioner Women's Health
DX: Z12.31 Encounter for screening mammogram for malignant neoplasm of breast (principal)
CPT/HCPCS: 77063; 77067

== ENCOUNTER → 2024-10-10 | Outpatient (CLI) | payer OTHER, SELFPAY ==
--- OUTSIDE RECORDS SUMMARY | 2024-10-10 09:18 | XMS RPT_ITS | CCD ---
Author Organization [facility] Care Team Providers Care Media Account Executive Name Role Phone Michelle Bustillo Unavailable Michelle Bustillo Unavailable Michelle Franklin Primary Care Unavailable Misa Osborn Referring Unavailable Misa Osborn Attending Unavailable Brynn LOW ALTITUDE AIR DEFENSE GUNNER, Barbara Attending Unavailable Michelle Franklin Primary Care Unavailable Brynn LOW ALTITUDE AIR DEFENSE GUNNER, Barbara Referring Unavailable Allergies Allergy Classification Reported Allergen(s) Allergy Type Date of Onset Reaction(s) Facility (5 sources) etodolac; Translations: [etodolac] drug allergy 6 stomach pain [facility] Work Phone: (2 sources) POLYTRIM; OPHTHALMIC AGENT drug allergy 6 red, itchy, tearing [facility] Work Phone: (2 sources) Polymyxin B Drug Allergy 1 red, itchy,tearing [facility] (2 sources) Trimethoprim Drug Allergy 1 red, itchy,tearing [facility] (1 source) Trimethoprim Drug Allergy 1 [facility] (1 source) polymyxin B Drug allergy (disorder) 1 [facility] Medications Current Medications Medication Drug Class(es) Dates Sig (Normalized) Sig (Original) cetirizine hydrochloride 10 mg oral capsule (2 sources) Histamine-1 Receptor Antagonist Start: 07-17-2018 take 1 capsule by mouth once daily Cetirizine (Zyrtec) 10 mg capsule Active 10 MG PO DAILY July 17, 2018 12:00am Emollient Combination No.53 (Hylatopicplus) lotion (4 sources) Start: 09-13-2020 Emollient Combination No.53 (Hylatopicplus) lotion Active 1 EACH TOPICAL TWICE A DAY September 13, 2020 2:08pm Start: 09-13-2020 Emollient Comb ination No.53 (Hylatopicplus) lotion Active 1 EACH TOPICAL TWICE A DAY September 13, 2020 1:08pm Start: 07-17-2018 End: 09-13-2020 Emollient Combination No.53 (Hylatopicplus) lotion Discontinued 1 EACH TOPICAL TWICE A DAY July 17, 2018 12:00am September 13, 2020 2:08pm Start: 07-17-2018 End: 09-13-2020 Emollient Combination No.53 (Hylatopicplus) lotion Discontinued 1 EACH TOPICAL TWICE A DAY July 16, 2018 11:00pm September 13, 2020 1:08pm metroNIDAZOLE 0.0075 mg/mg topical gel (4 sources) Nitroimidazole Antimicrobial Start: 03-02-2017 Metronidazole Active 1 APPLIC TOPICAL ONCE March 02, 2017 1:00am Start: 12-29-2015 METROGEL GEL 0 .75% - Apply to face as directed for Rosacea METRONIDAZOLE GEL [id number] Jasmyn Chand RN Multivitamin (Daily Multi-Vitamin) tablet (2 sources) Start: 04-10-2018 take 1 tablet by mouth once daily Multivitamin (Daily Multi-Vitamin) tablet Active 1 TABLET PO DAILY April 10, 2018 1:00am Start: 04-10-2018 take 1 tablet by [facility] once daily Multivitamin (Daily Multi-Vitamin) tablet Active 1 TABLET PO DAILY April 10, 2018 12:00am Completed/Discontinued Medications Medication Drug Class(es) Dates Sig (Normalized) Sig (Original) acetaminophen 325 mg / HYDROcodone bitartrate 5 mg oral tablet (2 sources) Opioid Agonist Start: 01-16-2020 End: 01-21-2020 Hydrocodone-Acetam inophen Discontinued 1 EACH PO EVERY 6 HOURS NEEDED 15 07January 16, 2020 January 21, 2020 1:03am aspirin 81 mg delayed release oral tablet (2 sources) Platelet Aggregation Inhibitor, Nonsteroidal Anti-inflammatory Drug Start: 02-14-2016 take 1 tablet by mouth once daily ASPIRIN 81 MG TBEC One tablet by mouth daily ASPIRIN [id number] Julius Engel MD atorvastatin 20 mg oral tablet (8 sources) HMG-CoA Reductase Inhibitor Start: 04-11-2017 End: 04-10-2018 take 20 mg by mouth every other day Atorvastatin Discontinued 20 MG PO .COMPLEX 45 April 10, 2018 3:53pm April 10, 2018 3:55pm 20 mg PO every other day Start: 03-02-2017 End: 04-11-2017 take 20 mg by mouth once daily Atorvastatin Discontinu ed 20 MG PO daily March 02, 2017 1:00am April 11, 2017 4:43pm Start: 02-14-2016 take 1 tablet by andrew th once daily ATORVASTATIN CALCIUM 20 MG TABS One tablet by mouth daily ATORVASTATIN CALCIUM [id number] Julius Engel MD calcium ascorbate 500 mg oral tablet (2 sources) Start: 07-17-2018 End: 09-13-2020 take 500 mg by mouth once daily Ascorbate Calcium (Vitamin C) Discontinued 500 MG PO DAILY July 17, 2018 12:00am September 13, 2020 2:08pm clopidogrel 75 mg oral tablet (4 sources) P2Y12 Platelet Inhibitor Start: 07-03-2018 End: 09-11-2019 take 75 mg by mouth once daily Clopidogrel Discontinued 75 MG PO DAILY July 17, 2018 11:06am September 11, 2019 3:31pm DERMATOLOGICAL PRODUCTS, MISC. (1 source) Start: 12-30-2015 HYLATOPIC PLUS CREA as directed DERMATOLOGICAL PRODUCTS, MISC. [id number] Julius Engel MD DERMATOLOGICAL PRODUCTS, MISC. (1 source) Start: 12-30-2015 HYLATOPIC PLUS CREA as directed DERMATOLOGICAL PRODUCTS, MISC. [id number] Julius Engel MD Echinacea (2 sources) Start: 04-10-2018 End: 07-17-2018 take 380 mg by mouth once daily Echinacea Discontinued 380 MG PO DAILY April 10, 2018 1:00am July 17, 2018 11:06am Start: 04-10-2018 End: 07-17-2018 take 380 mg by mouth once daily Echinacea Discontinued 380 MG PO DAILY April 10, 2018 12:00am July 17, 2018 10:06am loratadine 10 mg oral capsule (4 sources) Start: 03-02-2017 End: 04-10-2018 take 10 mg by mouth once daily Loratadine Discontinued 10 MG PO daily March 02, 2017 1:00am April 10, 2018 3:30pm Start: 08-11-2016 take 1 tablet by andrew th once daily CLARITIN 10 MG CAPS One tablet by mouth daily LORATADINE [id number] Julius Engel MD Start: 08-11-2016 take 1 tablet by andrew th once daily CLARITIN 10 MG CAPS One tablet by mouth daily LORATADINE [id number] Julius Engel MD metoprolol tartrate 25 mg oral tablet (4 sources) beta-Adrenergic Annika Start: 01-12-2016 End: 02-14-2016 METOPROLOL TARTRATE 25 MG TABS One tablet by mouth the night before procedure and One tablet by mouth prior to procedure METOPROLOL TARTRATE [id number] Julius Engel MD MULTIPLE VITAMIN (2 sources) Start: 12-30-2015 take 1 tablet by mouth once daily MULTIVITAMINS TABS One tablet by mouth daily MULTIPLE VITAMIN Julius Engel MD rosuvastatin calcium 5 mg oral tablet (4 sources) HMG-CoA Reductase Inhibitor Start: 04-10-2018 End: 09-08-2019 take 1 tablet by mouth once daily Rosuvastatin (Crestor) 5 mg tablet Discontinued 5 MG PO DAILY 90 September 24, 2018 9:18am September 08, 2019 1:05pm Problems Active Problems Problem Classification Problem Date Documented Date Episodic/Chronic Nonspecific chest pain (4 sources) Chest pain; Translations: [Chest pain, unspecified] Onset: 12-29-2015 12-29-2015 Episodic Other screening for suspected conditions (not mental disorders or infectious disease) (6 sources) Electrocardiogram abnormal; Translations: [Echocardiogram abnormal] Onset: 12-30-2015 12-30-2015 Episodic Past or Other Problems Problem Classification Problem Date Documented Date Episodic/Chronic Other nutritional; endocrine; and metabolic disorders (2 sources) Body mass index (BMI) 27.0-27.9, adult; Translations: [Body mass index (BMI) 27.0-27.9, adult] Onset: 08-11-2016 08-11-2016 Episodic Other screening for suspected conditions (not mental disorders or infectious disease) (3 sources) Abnormal result of other cardiovascular function study; Translations: [Electrocardiogram abnormal] Onset: 12-30-2015 02-09-2016 Episodic Other upper respiratory infections (1 source) Acute pharyngitis, unspecified; Translations: [Acute pharyngitis, unspecified] Onset: 05-03-2022 Episodic Results Test Name Value Interpretation Reference Range Facility SCRN MAMM (CAD)W/IRLANDA BILATo n 08-09-2022 SCRN MAMM (CAD)W/IRLANDA BILAT [facility] Imaging Services [address] [place] [address] SCRN MAMM (CAD)W/IRLANDA BILAT MR#: [id number] Acct: [id number] Name: JIN SMITH Rep #: [id number] : 1965 F 57 From: Alec coates MD PCP: Dr. Michelle Franklin MD Status: [facility] CLI Study: SCRN MAMM (CAD)W/IRLANDA BILAT Date of Exam: 07/27 06/18 Exam# [id number] Ordering Dr: Misa Osborn L[employer]ITUDE [employer] DEF[employer] GUNNER-C MAMMOGRAPHY - BILATERAL SCREENING REASON FOR EXAM: Female, 57 years old. Routine annual screening examination. PERTINENT HISTORY: Non-contributory. TECHNIQUE: Digital bilateral breast irlanda (3D mammographic acquisition) in the CC and MLO projections. 2-D mediolateral oblique (MLO) and craniocaudad (CC) views of both breasts were obtained. CAD: Full Field Digital Mammography with Computer Added Detection was performed. COMPARISON: Comparison is made with prior study dated January 13, 2021 and October 17, 2019. FINDINGS: Breast Composition: There are scattered areas of fibroglandular density. There are no dominant masses or suspicious calcifications. Stable 4 mm x 5 mm well-defined nodule in the anterior upper medial aspect of the right breast. Stable benign-appearing bilateral axillary lymph nodes. No other significant abnormalities are identified. There has been no significant change since the prior study. BI/SCRN MAMM (CAD)W/IRLANDA BILAT IMPRESSION: Stable bilateral screening mammogram. Yearly follow-up mammogram recommended. (A) ASSESSMENT CATEGORY: BIRADS Category 2: Benign. A letter regarding these results will be sent to the patient by the facility within 30 days. Approximately 10% of breast cancers are not detected by mammography. A normal mammogram should not delay biopsy of a clinically suspicious abnormality. [id number] Electronically Signed: Alec Miltno MD at 11:10 EDT Reading Location ID and State: [address] [place] [address] , Service support , CC: VICKI Osborn; Dr. Michelle Franklin MD Rocket Engine Tester: Signed Normal [facility] Culture, Throaton 04-29-2022 CUT Order Date: 04/27/22 Order Info: 626-2 - CUT 04/27/22 626-2 - CUT Ampicillin can be used for Beta-Lactamase negative isolates. Bacteria Throat Cult Trimeth/Sulfa, Chloramphenicol, Cefotaxime, Ciprofloxacin, Amoxicillin/Clavula natalie Acid,and Oral 2nd/3rd Generation Cephlosporins are effective against both Beta-Lactamase positive and Beta-Lactamase negative isolates. Haemophilus influenzae Amount Growth 2+ Beta Lactamase-Reportabl e Positive Normal [facility] Comment on above: Performed By: #### M 100.1000 #### [facility] [address] [place], [address] Office Visiton 08-11-2016 Dietary management education, guidance, and counseling (procedure) yes Invalid Interpretation Code [facility] Work Phone: Documentation of current medications (procedure) Done Invalid Interpretation Code [facility] Work Phone: Fall risk assessment No Invalid Interpretation Code [facility] Work Phone: Protein mass conc Done [facility] Work Phone: [phone] Lab Report: Basic Metabolic Profile (BMP)on 04-11-2016 Anion gap 7 mmol/L Invalid Interpretation Code 5-15 [facility] Work Phone: [phone] Anion gap molar conc 7 mmol/L 5-[address] [facility] Work Phone: [phone] Calcium mass conc 8.8 mg/dL Invalid Interpretation Code 8.5-10.1 [facility] Work Phone: [phone] Chloride molar conc 103 mmol/L Invalid Interpretation Code 98-107 [facility] Work Phone: [phone] CO2 29.0 mmol/L Invalid Interpretation Code 21.0-32.0 [facility] Work Phone: [phone] CO2 ppres (BldV) 29.0 mmol/L 21.0-32.0 [facility] Work Phone: [phone] Creatinine mass conc 0.81 mg/dL Invalid Interpretation Code 0.55-1.02 [facility] Work Phone: [phone] eGFR (non-black) 96 mL/min/{1.73_m2} Invalid Interpretation Code >60 [facility] Work Phone: [phone] EST GFR - AA 96 mL/min >60 [facility] Work Phone: [phone] GFR/1.73 sq M predicted among non-blacks MDRD vol rate/area (S/P/Bld) 79 mL/min/{1.73_m2} Invalid Interpretation Code >60 [facility] Work Phone: [phone] Glucose 85 mg/dL Invalid Interpretation Code 70-110 [facility] Work Phone: [phone] Glucose mass conc 85 mg/dL 70-110 [facility] Work Phone: [phone] Potassium molar conc 3.8 mmol/L Invalid Interpretation Code 3.5-5.1 [facility] Work Phone: [phone] Sodium molar conc 139 mmol/L Invalid Interpretation Code 136-145 [facility] Work Phone: [phone] Urea nitrogen mass conc 11 mg/dL Invalid Interpretation Code 7-18 [facility] Work Phone: [phone] Urea nitrogen/Creatinine mass ratio 13.5 RATIO Invalid Interpretation Code 10-20 [facility] Work Phone: [phone] Lab Report: CBC-Complete Blo od Cnt No Diffon 04-11-2016 Erythrocyte distribution width Ratio (RBC) 40.5 fL 35.1-43.9 [facility] Work Phone: [phone] Erythrocyte distribution width Ratio (RBC) 12.3 % 11.6-14.6 [facility] Work Phone: [phone] Erythrocytes (RBC) 4.72 10*6/uL Invalid Interpretation Code 4.2-5.4 [facility] Work Phone: [phone] Hematocrit (HCT) 42.5 % Invalid Interpretation Code 37-47 [facility] Work Phone: [phone] Hematocrit Volume Fraction (Bld) 42.5 % 37-47 [facility] Work Phone: [phone] Hemoglobin mass conc (Bld) 14.3 g/dL Invalid Interpretation Code 12.0-15.0 [facility] Work Phone: [phone] MCH 30.3 pg Invalid Interpretation Code 27.0-32.0 [facility] Work Phone: [phone] MCH Entitic mass (RBC) 30.3 pg 27.0-32.0 [facility] Work Phone: [phone] MCHC 33.6 G/GL Invalid Interpretation Code 32-36 [facility] Work [phone] MCHC mass conc (RBC) 33.6 G/GL 32-[address] [facility] Work Phone: [phone] MCV 90.0 fL Invalid Interpretation Code 81-99 [facility] Work Phone: [phone] MCV Entitic volume (RBC) 90.0 fL 81-99 [facility] Work Phone: [phone] Platelet mean volume Entitic volume (Bld) 9.0 fL 6.2-12.0 [facility] Work Phone: [phone] Platelets 389 10*3/mm3 Invalid Interpretation Code 150-450 [facility] Work Phone: [phone] Platelets #/vol (Bld) 389 10*3/mm3 150-450 [facility] Work Phone: [phone] PMV by Sara 9.0 fL Invalid Interpretation Code 6.2-12.0 [facility] Work Phone: [phone] RBC #/vol (Bld) 4.72 10*6/uL 4.2-5.4 [facility] Work Phone: [phone] RDW-CA 12.3 % Invalid Interpretation Code 11.6-14.6 [facility] Work Phone: [phone] red blood cell distribution width, size density 40.5 fL Invalid Interpretation Code 35.1-43.9 [facility] Work Phone: [phone] WBC #/vol (Bld) 8.4 10*3/uL 4.4-11.0 [facility] Work Phone: [phone] WBC (Leukocytes) 8.4 10*3/uL Invalid Interpretation Code 4.4-11.0 [facility] Work Phone: [phone] Lab Report: Lipid Profileon 04-11-2016 Cholesterol in HDL mass conc 62 mg/dL Invalid Interpretation Code [facility] Work Phone: [phone] Cholesterol in LDL mass conc 14 mg/dL Invalid Interpretation Code 0-130 [facility] Work Phone: [phone] Cholesterol mass conc 94 mg/dL Invalid Interpretation Code 200 [facility] Work Phone: [phone] Lipoprotein.pre-beta mass conc 18 mg/dL Invalid Interpretation Code 5-40 [facility] Work Phone: [phone] Triglyceride mass conc 89 mg/dL Invalid Interpretation Code [facility] Work Phone: [phone] Lab Report: Liver Profileon 04-11-2016 Albumin mass conc 3.8 g/dL Invalid Interpretation Code 3.4-5.0 [facility] Work Phone: [phone] Alkaline phosphatase (ALP) 70 U/L Invalid Interpretation Code 45-117 [facility] Work Phone: [phone] ALP enzyme act/vol (Bld) 70 U/L 45-117 [facility] Work Phone: [phone] ALT enzyme act/vol 27 U/L Invalid Interpretation Code 12-78 [facility] Work Phone: [phone] AST enzyme act/vol 15 U/L Invalid Interpretation Code 15-37 [facility] Work Phone: [phone] Bilirubin mass conc 0.40 mg/dL Invalid Interpretation Code 0.20-1.00 [facility] Work Phone: [phone] Bilirubin.direct mass conc 0.09 mg/dL Invalid Interpretation Code 0.00-0.30 [facility] Work Phone: [phone] Globulin 3.8 g/dL High 2.3-3.5 [facility] Work Phone: [phone] Globulin mass conc (S) 3.8 g/dL High 2.3-3.5 [facility] Work Phone: [phone] Protein mass conc 7.6 g/dL Invalid Interpretation Code 6.4-8.2 [facility] Work Phone: [phone] Lab Report: Partial Thrombop last Timeon 04-11-2016 aPTT Coag time (Bld) 30.9 s Invalid Interpretation Code 24.1-36.2 [facility] Work Phone: [phone] Lab Report: Prothrombin Time w/INRon 04-11-2016 INR Coag RelTime (PPP) 1.0 {INR} [facility] Work Phone: [phone] INR in blood by coagulation 1.0 {INR} Invalid Interpretation Code [facility] Work Phone: [phone] Prothrombin time (PT) Coag time (PPP) 13 s Invalid Interpretation Code 11.7-14.9 [facility] Work Phone: [phone] Replaced Document: Midmark E CG Observationson 12-30-2015 EKG QRS axis -1 deg [facility] Work Phone: [phone] electrocardiogram interpretation Sinus Rhythm WITHIN NORMAL LIMITS Invalid Interpretation Code [facility] Work Phone: [phone] GE use only - for Link[employer]ic import when terms are not otherwise specified 405 ms Invalid Interpretation Code [facility] Work Phone: [phone] Interpretation Sinus Rhythm WITHIN NORMAL LIMITS [facility] Work Phone: [phone] P [place] -1 deg [facility] Work Phone: [phone] P wave axis, electrocardiogram -1 deg Invalid Interpretation Code [facility] Work Phone: [phone] SD Interval 148 ms [facility] Work Phone: [phone] SD interval, electrocardiogram 148 ms Invalid Interpretation Code [facility] Work Phone: [phone] Pulse (Heart Rate) 62 /min Invalid Interpretation Code [facility] Work Phone: [phone] QRS axis, electrocardiogram -1 deg Invalid Interpretation Code [facility] Work Phone: [phone] QRS Duration 84 ms [facility] Work Phone: [phone] QRS duration, electrocardiogram 84 ms Invalid Interpretation Code [facility] Work Phone: [phone] QT Interval new path ms [facility] Work Phone: [phone] QT interval, electrocardiogram new path ms Invalid Interpretation Code [facility] Work Phone: [phone] QTc Vigil 405 ms [facility] Work Phone: [phone] T [place] 16 deg [facility] Work Phone: [phone] T wave axis, electrocardiogram 16 deg Invalid Interpretation Code [facility] Work Phone: [phone] Clinical Lists 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-2015 Tobacco smoking status NHIS Never smoker [facility] Work Phone: [phone] Tobacco use CPHS Never smoker Invalid Interpretation Code [facility] Work Phone: [phone] Clinical Lists Update: Prelo mechanical service technician 12-08-2015 Thyrotropin Qn 1.80 u[iU]/mL Invalid Interpretation Code [facility] Work Phone: [phone] Vital Signs Date Time Vital Sign Value Performing Clinician Paty smith 08-11-2016 11:43-0400 BMI (Body Mass Index) 27.88 kg/m2 Michelle Bustillo [facility] Work Phone: 08-11-2016 11:43-0400 BP Diastolic 62 mm[Hg] Michelle [facility] Work Phone: 08-11-2016 11:43-0400 BP Systolic 118 mm[Hg] Michelle Hamm [facility] Work Phone: 08-11-2016 11:43-0400 Height 170.18 cm Michelle Hamm [facility] Work Phone: 08-11-2016 11:43-0400 Pulse (Heart Rate) 80 /min Michelle Hamm [facility] Work Phone: 08-11-2016 11:43-0400 Respiratory Rate 16 /min Michelle Hamm [facility] Work Phone: 08-11-2016 11:43-0400 Weight 80.74 kg Michelle Hamm [facility] Work Phone: 02-14-2016 13:30-0500 BSA (Body Surface Area) 1.92 m2 Michelle Hamm [facility] Work Phone: 12-30-2015 16:29-0400 Heart rate 62 /min Michelle Hamm [facility] Work Phone: 12-30-2015 16:14-0400 Height 170.18 cm Michelle Hamm [facility] Work Phone: Encounters Encounter Date Encounter Type Care Provider Facility Start: 08-09-2022 End: 08-09-2022 ambulatory Michelle Franklin [facility] Work Phone: Start: 08-09-2022 End: 08-09-2022 Patient encounter procedure [facility] Start: 04-27-2022 End: 04-27-2022 Patient encounter procedure [facility], Specimen Start: 04-27-2022 End: 04-27-2022 ambulatory Barbara Swain NP [facility] Work Phone: Procedures Date Procedure Procedure Detail Performing Clinician Start: 08-09-2022 Screening mammography Start: 08-11-2016 End: 08-11-2016 Dietary management education, guidance, and counseling Michelle Bustillo Start: 08-11-2016 End: 08-11-2016 Follow Up Appt 6 months Julius Engel MD Start: 08-11-2016 End: 08-11-2016 MMM Julius Engel MD Start: 02-14-2016 End: 04-11-2016 *Hepatic Function Panel Julius Engel MD Start: 02-14-2016 End: 02-14-2016 Follow Up Appt 3 months Julius Engel MD Start: 02-14-2016 End: 04-11-2016 Lipid panel [AGGREGATE] Julius Engel MD Start: 02-14-2016 End: 02-14-2016 MMM Julius Engel MD Start: 12-30-2015 End: 12-31-2015 aPTT Julius Engel MD Start: 12-30-2015 End: 02-09-2016 Ct angio hrt w/3d image Julius Engel MD Start: 12-30-2015 End: 12-31-2015 Follow Up Appt 6 weeks Julius Engel MD Bacteria identificat ion test Bacteria identificat ion test Throat culture Plan of Treatment Date Care Activity Detail Author Start: 03-02-2017 End: 03-02-2017 Appointment Appointment [facility] Work Phone: Start: 10-10-2016 End: 04-12-2016 *Hepatic Function Panel *Hepatic Function Panel [facility] Work Phone: Start: 10-10-2016 End: 04-12-2016 Lipid panel [AGGREGATE] *Lipid Profile CC PCP [facility] Work Phone: Start: 08-11-2016 End: 08-11-2016 Follow Up Appt 6 months Follow Up Appt 6 months [facility] Work Phone: Start: 08-11-2016 End: 08-11-2016 MMM MMM [facility] Work Phone: Start: 02-14-2016 End: 04-11-2016 *Hepatic Function Panel *Hepatic Function Panel [facility] Work Phone: Start: 02-14-2016 End: 02-14-2016 Follow Up Appt 3 months Follow Up Appt 3 months [facility] Work Phone: Start: 02-14-2016 End: 04-11-2016 Lipid panel [AGGREGATE] *Lipid Profile CC PCP [facility] Work Phone: Start: 02-14-2016 End: 02-14-2016 MMM MMM [facility] Work Phone: Start: 12-30-2015 End: 12-31-2015 Ct angio hrt w/3d image [facility]A [facility] Work Phone: Start: 12-30-2015 End: 12-31-2015 Electrocardiogram, complete EKG (In office) [facility] Work Phone: Start: 12-30-2015 End: 12-31-2015 Follow Up Appt 6 weeks Follow Up Appt 6 weeks [facility] Work Phone: Patient Education CHEST%20PAIN [facility] Work Phone: Immunizations Immunization Date Immunization Notes Care Provider Fa [facility] 01-16-2020 influenza, seasonal, injectable [facility] Payers Date Payer Category Payer Private Health Insurance [id number] 2022 Self-pay [id number] 2011 Private Health Insurance [employer] [id number] Unknown [id number] Unknown [id number] Social History Date Type Detail Facility Start: 09-13-2020 End: 09-13-2020 Tobacco smoking status NHIS Unknown if ever smoked [facility] Start: 1965 Sex Assigned At Female [facility] Evaluation note Note Date & Type Note Facility Evaluation note No assessment information availa keyur [facility] Work Phone: Chief Complaint and Reason for Visit Chief Complaint Sore throat Chief Complaint Sore throat SCREENING Family History No Family History Records Found Relationship Condition Age at Onset Recorded Date/T kapil mother Hypertension Unknown father Ventricular tachycardia Unknown brother Atrial fibrillation Unknown grandfather History of coronary artery bypass surgery Unknown grandmother Myocardial infarction Unknown grandmother Presence of cardiac pacemaker Unknown Advance Directives No Advanced Directives Records Found Advance Directive Response Recorded Date/ Time Advance Directives Yes July 23 8:27am Living Will Yes January 14 6:23pm Power of Hog Pusher Yes January 15, 2020 6:23pm Advance Directive Response Recorded Date/ Time Advance Directives Yes July 23 9:27am Living Will Yes January 14 020 7:23pm Power of Hog Pusher Yes January 15, 2020 7:23pm Summary Purpose Additional Source Comments Care Teams (unrecognized sec tion and content) Team Status: Active Member Role Status Dates Dr. Michelle Franklin MD Family Provider Active Dr. Michelle Franklin MD Primary Care Provider Active Team Status: Inactive Member Role Status Dates Dr. Michelle Franklin MD Primary Care Provider Active Barbara Swain NP, [employer] Attending Provider, Referring Pro vider Active Team Status: Inactive Member Role Status Dates Dr. Michelle Franklin MD Primary Care Provider Active Misa Osborn NP-C Attending Provider, Referring Provi eleni Active Goals (unrecognized section and content) Goals may be documented in a n alternate sectionGoals may be documented in an alternate section INFORMATION SOURCE (unrecogn ized section and content) DATE CREATED AUTHOR 08/15/2022 [facility] FOR RECORDS PERTAINING TO PATIENTS WHO ARE OR HAVE BEEN ENROLLED IN A CHEMICAL DEPENDENCY/SUBSTANCEABUSE PROGRAM, SOME INFORMATION MAY BE OMITTED. This clinical summary was aggregated from multiple sources. Caution should be exercised in using it in the provision of clinical care. This summary normalizes information from multiple sources, and as a consequence, information in this document may materially change the coding, format and clinical context of patient data. In addition, data may be omitted in some cases. CLINICAL DECISIONS SHOULD BE BASED ON THE PRIMARY CLINICAL RECORDS. [employer] [facility]. provides no warranty or guarantee of the accuracy or completeness of information in this document.
[2024-10-10 11:03] LABS: Anion Gap 12 (5-15); BUN 14 mg/dL (4-19); BUN/Creat Ratio 15.3 RATIO (10-20); Calcium,Total 9.0 mg/dL (7.6-11.0); Carbon Dioxide 24.1 mmol/L (21.0-32.0); Chloride 106 mmol/L (98-108); Cholesterol 166 mg/dL (<=200); Glucose 90 mg/dL (70-99); Low Density Lipoprotein Calc. 91 mg/dL; Potassium 3.8 mmol/L (3.3-5.1); Triglycerides 130 mg/dL; Very Low Density Lipoprotein 26 mg/dL (5-40); cholesterol:hdl ratio screen 3.39
== END | disposition home or self-care (01) ==
LOC: MTLAB 08:41
PROVIDERS: PCP Family Medicine
DX: Z00.00 Encounter for general adult medical examination without abnormal findings (principal); Z13.220 Encounter for screening for lipoid disorders; Z13.29 Encounter for screening for other suspected endocrine disorder
CPT/HCPCS: 36415; 80048; 80061; 84443

== ENCOUNTER → 2024-11-04 | Outpatient (CLI) | payer OTHER, SELFPAY ==
--- NOTE | 2024-11-04 16:14 | BI_ITS ---
EXAM: SCRN MAMM (CAD)W/IRLANDA BILAT DATE: 11/04/2024 CLINICAL HISTORY: F, Age 59 y/o , SCREENING FOR BREAST CANCER No family history. TECHNIQUE: Procedure Code: [id number] Modality: MG Procedure: SCRN MAMM (CAD)W/IRLANDA BILAT COMPARISON: Prior exam(s) dated August 09, 2022.. FINDINGS: TISSUE DENSITY: There are scattered areas of fibroglandular density. Bilateral Breast Mammographic Findings: No significant masses, calcifications or other abnormalities are identified. Stable 4 mm x 5 mm well-defined nodule in the anterior upper medial aspect of the right breast with a central fatty notch suggestive of a small lymph node. No suspicious masses, areas of developing architectural distortion, or suspicious calcifications. There has been no significant interval change. BI/SCRN MAMM (CAD)W/IRLANDA BILAT IMPRESSION: Stable screening bilateral mammogram. OVERALL FINAL ASSESSMENT BI-RADS 2: BENIGN RECOMMENDATION: Routine annual follow-up in 1 Year A letter with findings and recommendations will be mailed to the patient. Reading Location: [id number]
== END | disposition home or self-care (01) ==
PROVIDERS: PCP Family Medicine
DX: Z12.31 Encounter for screening mammogram for malignant neoplasm of breast (principal)
CPT/HCPCS: 77063; 77067